=== PATIENT | female | born 1970 | race Caucasian/White ===

== ENCOUNTER 2018-02-26 07:29 | Emergency (ER) | payer OTHER ==
[~2018-02-26] VITALS: Ht 172.7 cm; Wt 68.0 kg
[2018-02-26] MEDS ORDERED: EXCEDRIN CAPLE1 EACH PO (07:49)
[2018-02-26] MEDS ORDERED: COREG25 MG PO (07:49)
[2018-02-26] MEDS ORDERED: CARDIZEM CD120 MG PO (08:04)
[2018-02-26 08:20] LABS: HEMATOCRIT 42.3 % (37.0-47.0); HEMOGLOBIN 14.8 gm/dL (12.0-15.0); MCH 30.7 pg (26.0-34.0); MCV 87.8 fL (80.0-100.0); MPV 7.5 fl. (7.2-11.1); RBC 4.81 mil/uL (4.20-5.00); RDW-CV 12.6 % (10.5-14.5); WBC 4.9 thou/uL (4.0-11.0)
[2018-02-26 08:29] LABS: ANION GAP 9 mmol/L (7-16); BUN 14 mg/dL (7-18); CALCIUM 9.3 mg/dL (8.5-10.1); CHLORIDE 100 mmol/L (98-107); CO2 28 mmol/L (21-32); CREATININE 0.7 mg/dL (0.6-1.3); GLUCOSE 112 mg/dL (70-99); SODIUM 137 mmol/L (136-145)
[2018-02-26 08:35] LABS: TROPONIN-I LEVEL <0.06 ng/mL (<0.06)
[2018-02-26] MEDS ORDERED: ANTIVERT25 MG PO (09:35)
[2018-02-26 09:52] VITALS: BP 128/73
--- NOTE | 2018-02-26 11:59 | EKG ---
[place] [address] ELECTROCARDIOGRAM REPORT Name: DANIELA ROSS Room: [facility]#: [id number] Admission: 02/26/18 Attend Phys: Discharge: 02/26/18 Date of : 68 Report #: [id number] THIS REPORT FOR: //name// [facility] ED Test Date: 2018-02-26 Test Time: 08:21:25 Pat Name: DANIELA ROSS Department: Room: Gender: F Material Reclaimer: MS : 1970 Requested By: Kyle Van Order Number: [id number] MD: Khang Avitia Measurements Intervals Lucas Rate: 74 P: 66 UT: 167 QRS: 66 QRSD: 93 T: 40 QT: 380 QTc: 422 Interpretive Statements Sinus rhythm No previous ECG available for comparison Electronically Signed On 02-26-2018 11:59:29 NURSE [place] by Khang Avitia [email or web address] <ELECTRONICALLY SIGNED> By: Khang Avitia MD, [facility] 02/26/18 1159 0821 08 Khang Avitia MD, FACC /EPI
== END 2018-02-26 09:53 | disposition home or self-care (01) ==
LOC: M.ERS 07:29
PROVIDERS: Emergency Medicine Emergency Medical Services
DX: I10 Essential (primary) hypertension (principal); Z90.49 Acquired absence of other specified parts of digestive tract